=== PATIENT | female | born 1960 | race Caucasian/White ===

== ENCOUNTER → 2019-09-08 | Outpatient (CLI) | payer OTHER ==
--- NOTE | 2019-09-08 17:20 | PCVCIMAG ---
APPROVED REPORT Study performed: 09/08/2019 16:38:53 EXAM: Comprehensive 2D, Doppler, and color-flow Echocardiogram Patient Location: Echo lab Room #: 2Status: routine BSA: 2.09 HR: 79 bpmBP: 152/92 mmHg Rhythm: NSR Other Information Study Quality: Adequate Risk Factors: Cardiac Risk Factors: Hyperlipidemia, HTN Indications Palpitations 2D Dimensions IVSd: 11.25 (7-11mm)LVOT Diam: 18.00 (18-24mm) LVDd: 43.30 mm PWd: 10.96 (7-11mm)Ascending Ao: 33.88 (22-36mm) LVDs: 25.93 (25-40mm) Left Atrium: 29.46 (27-40mm) Aortic Root: 29.67 mm LV Single Plane 4CH: 59.23 % LV Single Plane 2CH: 59.23 % Biplane EF: 60.2 % Volumes Left Atrial Volume (Systole) Single Plane 4CH: 58.50 mLSingle Plane 2CH: 58.41 mL LA ESV Index: 30.00 mL/m2 Aortic Valve AoV Peak Jose.: 1.21 m/s AO Peak Gr.: 5.87 mmHgLVOT Max P.21 mmHg LVOT Max V: 1.03 m/s DARLENE Vmax: 2.06 cm2 Mitral Valve E/A Ratio: 1.2 MV Decel. Time: 282.61 ms MV E Max Jose.: 0.77 m/s MV A Jose.: 0.63 m/s IVRT: 86.51 ms TDI E/Lateral E': 7.00E/Medial E': 9.63 Medial E' Jose.: 0.08 m/s Lateral E' Jose.: 0.11 m/s Pulmonary Vein P Vein S: 0.63 m/sP Vein A: 0.25 m/s P Vein D: 0.51 m/sP Vein A Dur.: 103.8 msec P Vein S/D Ratio: 1.24 Tricuspid Valve TR Peak Jose.: 2.34 m/sRAP Estimate: 7.00 mmHg TR Peak Gr.: 21.85 mmHg PA Pressure: 29.00 mmHg Left Ventricle The left ventricle is normal size. There is normal LV segmental wall motion. Borderline concentric left ventricular hypertrophy. Left ventricular systolic function is normal. The left ventricular ejection fraction is within the normal range. LVEF is 60%. Moderate diastolic dysfunction is present (pseudonormal filling). Right Ventricle The right ventricle is normal size. The right ventricular systolic function is normal. Atria The left atrium size is normal. The right atrium size is normal. Aortic Valve The aortic valve is normal in structure. No aortic regurgitation is present. There is no aortic valvular stenosis. Mitral Valve The mitral valve is normal in structure. There is no mitral valve regurgitation noted. No evidence of mitral valve stenosis. Tricuspid Valve The tricuspid valve is normal in structure. Mild tricuspid regurgitation. Pulmonary artery pressure is 29 mmHg. Pulmonic Valve The pulmonary valve is normal in structure. There is no pulmonic valvular regurgitation. Great Vessels The aortic root is normal in size. The ascending aorta is normal in size. IVC is normal in size and collapses >50% with inspiration. Pericardium There is no pericardial effusion. <Conclusion> The left ventricle is normal size. LVEF is 60%. Moderate diastolic dysfunction is present (pseudonormal filling). The right ventricle is normal size. The left atrium size is normal. The aortic valve is normal in structure. There is no mitral valve regurgitation noted. Mild tricuspid regurgitation. Pulmonary artery pressure is 29 mmHg. The aortic root is normal in size. There is no pericardial effusion.
== END | disposition home or self-care (01) ==
LOC: PCVCIMAG 16:43
PROVIDERS: ATTEND Internal Medicine Cardiovascular Disease
DX: I07.1 Rheumatic tricuspid insufficiency (principal); I10 Essential (primary) hypertension; R42 Dizziness and giddiness; R55 Syncope and collapse; R00.2 Palpitations; E78.5 Hyperlipidemia, unspecified; Z82.49 Family history of ischemic heart disease and other diseases of the circulatory system; Z72.89 Other problems related to lifestyle; Z88.0 Allergy status to penicillin; Z79.899 Other long term (current) drug therapy
CPT/HCPCS: 93306